=== PATIENT | female | born 1980 | race Caucasian/White ===

== ENCOUNTER 2017-12-02 09:53 | Emergency (ER) | payer SELFPAY ==
[2017-12-02 09:54] VITALS: BP 117/74; PULSE 102; RESP 18; TEMP 37.1; O2SAT 100; BMI 21.4
--- NOTE | 2017-12-02 10:14 | US_ITS ---
STUDY: FIRST TRIMESTER OBSTETRICAL ULTRASOUND REASON FOR EXAM: Female, 37 years old. Pelvic pain. LMP: Isaak 2017. TECHNIQUE: Transvaginal PRIOR ULTRASOUND: None. FINDINGS: There is visualization of a single gestational sac in a normal intrauterine position. The mean sac diameter (MSD) measures 2.58 cm, indicating an estimated gestational age (EGA) of 7 weeks, 5 days. The gestational sac shape is within normal limits. There is a visualized yolk sac. The yolk sac measures 0.52 cm. The placenta is non-visualized. There is visualization of a live embryo. The crown-rump length (CRL) measures 1.98 cm, indicating an estimated gestational age (EGA) of 8 weeks, 4 days. There is demonstrated cardiac activity with a heart rate of 157 bpm. The estimated gestation age (EGA) by LMP is 8 weeks, 4 days. The estimated date of delivery (CHERRI) by LMP is July 10, 2018. The estimated gestation age (EGA) by US is 8 weeks, 1 days. The estimated date of delivery (CHERRI) by US is July 13, 2018. The uterus measures 9.9 cm x 6.4 cm x 5.2 cm. There is no demonstrated uterine fibroid. The cervix is closed. The right ovary measures 4.5 cm x 1.4 cm x 2.3 cm. There is a 1.4 cm x 1.0 cm x 1.3 cm corpus luteum cyst in the right ovary. There is no visualized right adnexal mass or complex lesion. The left ovary measures 2.2 cm x 2.9 cm x 2.1 cm. There is no left ovarian cyst. There is no visualized left adnexal mass or complex lesion. There is no fluid in the cul de sac. US/Transvaginal w/Preg US IMPRESSION: Single live intrauterine gestation with a mean gestational age of 8 weeks and 1 day. Electronically Signed: Fam Tate MD at 12:29 EDT Tel [phone], Service support ,
[2017-12-02] MEDS: 0.9% Normal Saline 1,000 ML 1000 ML IV (10:20)
[2017-12-02] MEDS: Ondansetron 4 MG/2 ML Vial IV (10:22)
[2017-12-02 10:35] LABS: Absolute Lymphocyte Count 1.73 X10^3/ul (0.83-4.51); Absolute Neutrophil Count 3.7 X10^3/uL (2.0-7.7); Basophil# 0.01 X10^3/uL; Basophil% 0.2 % (0-1); Eosinophil# 0.05 X10^3/uL; Eosinophils% 0.8 % (0-5); Hematocrit 43.7 % (37-47); Hemoglobin 15.5 g/dl (12.0-15.0); Lymphocyte # 1.73 X10^3/ul (4.0); Lymphocyte % 28.9 % (19-41); Mean Corp Hgb Conc 35.5 g/gl (32-36); Mean Corpuscular Hgb 32.4 pg (27.0-32.0); Mean Corpuscular Volume 91.4 fL (81-99); Mean Platelet Vol. 10.5 fl (6.2-12.0); Monocyte# 0.53 X10^3/uL; Monocyte% 8.8 % (0-10); Neutrophil # 3.66 X10^3/uL (2.7-7.7); Neutrophil % 61.1 % (47-70); Platelet Count 306 K/mm3 (150-450); RBC Distribution Width SD 43.5 fl (35.1-43.9); Red Blood Count 4.78 M/mm3 (4.2-5.4)
[2017-12-02 10:52] LABS: POSITIVE COUNT NO; POSITIVE DIFFERENTIAL NO; POSITIVE MORPHOLOGY NO
--- NOTE | 2017-12-02 10:52 | ED.DCSUM_ITS ---
- ER Visit Summary Date of Service: 12/02/17 Chief Complaint: Abdominal pain and vomiting History of Present Illness: The patient is a [address] Limon and Dr. Ashley. She is a who took a test 2 days ago and found that she was . She reports her last menstrual period was in mid September. She denies any vaginal bleeding or discharge. Patient reports that she has been vomiting for approximately 1 week. States she is vomiting multiple times per day. No blood or emesis. She has abdominal pain that she describes as cramping. Senna 10 at worst and 7 out of 10 currently. Is worsened by urinating and relieved by nothing. She denies any diarrhea. She has had dysuria without frequency. Physical Examination: Vitals: Stable. Afebrile. General: Well-nourished and well-developed. Head: Normocephalic atraumatic. Neck: Supple, no lymphadenopathy. No JVD. Nontender. Cardiovascular: Regular rate and rhythm. No murmurs. Respiratory: No respiratory distress. Clear to auscultation bilaterally. Abdominal: Soft, mild right upper quadrant tenderness to palpation, nondistended , normal bowel sounds. No guarding, rebound, or peritoneal signs. Back: Nontender. Extremities: Nontender, no edema. Skin: Normal color, no rash. Neurologic: Alert and oriented ?3. Cranial nerves II through XII are intact. Normal strength and sensation. Psych: Normal affect. Test Results: CBC is marked for hemoglobin of 15.5. Chem-7 is normal. LFTs marked for total protein 9.1, globulin 5.2, ALT 57, and AST 42. Lipase is 66. UA does show an infection with 25-50 white blood cells, 3+ bacteria. Quantitative hCG is 155,562. She is B+. Ultrasound shows a single live intrauterine at 8 weeks and 1 day with heart tones of 157. Emergency Department Course and Treatment: Patient had an IV placed. She is given a liter bolus of normal saline. She was given Zofran for her nausea. She has not vomited while here. She was given a dose of Rocephin IV and her urine was sent for culture. Treatment Plan: Patient will be discharged with Zofran and Keflex. Instructed to follow-up with Dr. Ashley in 2 days previously scheduled. Disposition: To home in improved and stable condition. Impression: 1. First trimester . 2. Vomiting. 3. UTI. This note was generated with [employer] dictation software. It may contain incorrect words, spelling, and punctuation that were not noted in review of the chart prior to signing ED Disposition - Plan for ED Patient: Chief Complaint: Nausea/Vomiting Instructions: Severe Morning Sickness (Hyperemesis Gravidarum), ED UTI Cystitis Female Prescriptions: Ondansetron [Zofran Odt] 4 mg PO Q8H PRN PRN #10 tablet PRN Reason: Nausea Cephalexin [Keflex] 500 mg PO Q6 #40 capsule Referrals: Antoni Ashley MD [STAFF PHYSICIAN] - Keep Randa appointment
[2017-12-02 10:56] LABS: AST(SGOT) 42 U/L (15-37); Alanine Aminotransfer ALT/SGPT 57 U/L (13-56); Albumin, Serum 3.9 g/dL (3.2-5.0); Alkaline Phosphatase 91 U/L (45-117); Anion Gap 9 (5-15); BUN 8 mg/dL (7-18); Bilirubin, Direct 0.26 mg/dL (0.00-0.30); Calcium,Total 9.8 mg/dL (8.5-10.1); Chloride 107 mmol/L (98-107); Creatinine, Serum 0.73 mg/dL (0.55-1.02); EST Glomerular Filtration Rate 95 mL/min (>60); Est Glom Filt Rate - Afr Amer 115 mL/min (>60); Estimated Creatinine Clearance 108.49 ml/min; Globulin 5.2 g/dL (2.2-4.2); Glucose 97 mg/dL (74-106); Lipase 66 U/L (73-393); Potassium 3.7 mmol/L (3.5-5.1); Protein, Total 9.1 g/dL (6.4-8.2); Sodium Level 138 mmol/L (136-145)
[2017-12-02 10:59] LABS: Mucous, Urine 0 SEEN /hpf (<or=2+)
[2017-12-02 11:01] LABS: Color, Urine Yellow (Yellow); Glucose, Dipstick Normal (Normal); Leukocyte Esterase-Dipstick 500 /ul (Negative); Nitrite-Dipstick Positive (Negative); Occult Blood-Urine 10 /ul (Negative); Protein-Dipstick 15 mg/dl (Negative); Specific Gravity, Urine 1.015 (1.002-1.030); Urine Clarity Cloudy (Clear); Urine Urobilinogen 4 mg/dl (Normal)
[2017-12-02 11:02] LABS: Urine Bilirubin Dipstick 1 mg/dL (Negative)
[2017-12-02 11:03] LABS: Ketone-Dipstick 150 mg/dl (Negative)
[2017-12-02 11:06] LABS: Bacteria 3+ /hpf (None Seen); Red Blood Cells-Urine 0-5 SEEN /hpf (0-5); Squamous Epithelial Cells - UA 0-5 SEEN /hpf (5-10); White Blood Cells 25-50 SEEN /hpf (0-5)
[2017-12-02] MEDS: Ceftriaxone 1 GM/50 mL Premix x1 IV (11:39)
[2017-12-02 12:58] VITALS: BP 90/49; PULSE 100; RESP 17; O2SAT 100
== END 2017-12-02 13:00 | disposition home or self-care (01) ==
LOC: ED 10:31
PROVIDERS: Emergency Provider Emergency Medicine
DX: O23.41 Unspecified infection of urinary tract in pregnancy, first trimester (principal); B96.89 Other specified bacterial agents as the cause of diseases classified elsewhere; O21.9 Vomiting of pregnancy, unspecified; O99.331 Smoking (tobacco) complicating pregnancy, first trimester; Z3A.08 8 weeks gestation of pregnancy
CPT/HCPCS: 76817; 80048; 80076; 81001; 83690; 84702; 85025; 86900; 87086; 87088; 87186; 96365; 96375; 99283; J7030; A4216; J2405

== ENCOUNTER 2017-12-14 09:57 | Emergency (ER) | payer SELFPAY ==
[2017-12-14 09:58] VITALS: BP 134/77; PULSE 114; RESP 15; TEMP 36.8; O2SAT 100; BMI 19.1
[2017-12-14] MEDS: 0.9% Normal Saline 1,000 ML 1000 ML IV (10:20)
[2017-12-14 10:32] LABS: Absolute Lymphocyte Count 1.73 X10^3/ul (0.83-4.51); Absolute Neutrophil Count 3.6 X10^3/uL (2.0-7.7); Basophil# 0.01 X10^3/uL; Basophil% 0.2 % (0-1); Eosinophil# 0.07 X10^3/uL; Eosinophils% 1.2 % (0-5); Hematocrit 40.4 % (37-47); Hemoglobin 14.1 g/dl (12.0-15.0); Lymphocyte # 1.73 X10^3/ul (4.0); Mean Corp Hgb Conc 34.9 g/gl (32-36); Mean Corpuscular Volume 91.6 fL (81-99); Mean Platelet Vol. 10.9 fl (6.2-12.0); Monocyte% 6.9 % (0-10); Neutrophil # 3.55 X10^3/uL (2.7-7.7); Neutrophil % 61.7 % (47-70); POSITIVE COUNT NO; POSITIVE DIFFERENTIAL NO; POSITIVE MORPHOLOGY NO; Platelet Count 213 K/mm3 (150-450); RBC Distribution Width CV 12.9 % (11.6-14.6); RBC Distribution Width SD 43.4 fl (35.1-43.9); Red Blood Count 4.41 M/mm3 (4.2-5.4); White Blood Count 5.8 K/mm3 (4.4-11.0)
[2017-12-14 10:35] LABS: Bacteria 0 SEEN /hpf (None Seen); Color, Urine Yellow (Yellow); Glucose, Dipstick Normal (Normal); Ketone-Dipstick Negative (Negative); Leukocyte Esterase-Dipstick 25 /ul (Negative); Nitrite-Dipstick Negative (Negative); Occult Blood-Urine Negative /ul (Negative); Protein-Dipstick Negative (Negative); Red Blood Cells-Urine 0 SEEN /hpf (0-5); Urine Bilirubin Dipstick Negative (Negative); Urine Clarity Clear (Clear); Urine Urobilinogen 1 mg/dl (Normal); White Blood Cells 0 SEEN /hpf (0-5)
[2017-12-14] MEDS: Morphine 4 MG/ML Syringe IV (10:37)
[2017-12-14 10:41] VITALS: BP 106/81; PULSE 78; RESP 16; O2SAT 100
[2017-12-14 10:42] LABS: Mucous, Urine 1+ /hpf (<or=2+); Squamous Epithelial Cells - UA 0-5 SEEN /hpf (5-10)
[2017-12-14 10:50] LABS: Anion Gap 9 (5-15); BUN 5 mg/dL (7-18); BUN/Creat Ratio 8.5 RATIO (10-20); Calcium,Total 9.1 mg/dL (8.5-10.1); Chloride 108 mmol/L (98-107); Creatinine, Serum 0.59 mg/dL (0.55-1.02); EST Glomerular Filtration Rate 121 mL/min (>60); Est Glom Filt Rate - Afr Amer 146 mL/min (>60); Glucose 97 mg/dL (74-106); Potassium 3.2 mmol/L (3.5-5.1); Sodium Level 140 mmol/L (136-145)
--- NOTE | 2017-12-14 11:27 | US_ITS ---
STUDY: FIRST TRIMESTER OBSTETRICAL ULTRASOUND REASON FOR EXAM: Female, 37 years old. Cramping LMP: October 06, 2017 TECHNIQUE: Transvaginal PRIOR ULTRASOUND: December 02, 2017 FINDINGS: There is visualization of a single gestational sac in a normal intrauterine position. The mean sac diameter (MSD) measures 4.0 cm, indicating an estimated gestational age (EGA) of 10 weeks, 5 days. The gestational sac shape is within normal limits. There is a visualized yolk sac. The yolk sac measures 0.5 cm. The placenta is non-visualized. There is visualization of a live embryo. The crown-rump length (CRL) measures 3.8 cm, indicating an estimated gestational age (EGA) of 10 weeks, 6 days. There is demonstrated cardiac activity with a heart rate of 144 bpm. The estimated gestation age (EGA) by LMP is 9 weeks, 6 days. The estimated date of delivery (CHERRI) by LMP is July 13, 2018. The estimated gestation age (EGA) by US is 10 weeks, 2 days. The estimated date of delivery (CHERRI) by US is July 10, 2018. The uterus measures 11.5 x 7.2 x 6.0 cm. There is no demonstrated uterine fibroid. The cervix is closed. There is a nabothian cyst. The right ovary measures 2.6 x 2.0 x 1.4 cm. There is a 1.3 x 1.4 x 1.3 cm right ovarian mildly heterogeneous structure without vascularity suggesting a complex cyst. The left ovary measures 3.0 x 1.7 x 1.3 cm. There is no left ovarian cyst. There is no visualized left adnexal mass or complex lesion. There is no fluid in the cul de sac. US/Transvaginal w/Preg US IMPRESSION: There is a single live intrauterine gestation. The estimated gestation age (EGA) by LMP is 9 weeks, 6 days. The estimated date of delivery (CHERRI) by LMP is July 13, 2018. The estimated gestation age (EGA) by US is 10 weeks, 2 days. The estimated date of delivery (CHERRI) by US is July 10, 2018. There is suggestion of a right ovarian complex cyst. Electronically Signed: Magy Reynolds MD at 13:28 EDT , Service support ,
[2017-12-14 13:51] VITALS: BP 104/82; PULSE 73; RESP 16; O2SAT 100
--- NOTE | 2017-12-14 14:21 | ED.DCSUM_ITS ---
- ER Visit Summary Date of Service: 12/14/17 Chief Complaint: Pain History of Present Illness: The patient is a 37 F with back pain. She is about 10 weeks . Ab1. Follows with Dr. Ashley. No bleeding or discharge. No abdominal pain. No fevers. No urinary symptoms. Physical Examination: Vital signs unremarkable. Nontoxic and in no acute distress. Back is diffusely tender to palpation in the lumbar region. No abdominal tenderness. Skin appears normal. Test Results: CBC unremarkable. Potassium 3.2. Chloride 108. Urinalysis shows no bacteria or sign of infection. HCG quant is 96,000. Ultrasound showed a live intrauterine and a right ovarian complex cyst. This measured 1.4 cm in the largest diameter. Emergency Department Course and Treatment: Patient was treated with fluids and morphine here while awaiting results. I spoke with her OBs on-call partner regarding the cyst. This is unlikely to be causing the patient's pain. They will follow-up regarding her cyst and . I believe the pain is likely myofascial. She should continue Tylenol. Stay hydrated. Return for any new or worsening issues. Treatment Plan: Above Disposition: Discharged Impression: 1. Low back pain 2. Intrauterine This note was generated with [employer] dictation software. It may contain incorrect words, spelling, and punctuation that were not noted in review of the chart prior to signing ED Disposition - Plan for ED Patient: Chief Complaint: Referrals: Care Physician,No Primary [Primary Care Provider] -
--- NOTE | 2017-12-14 14:21 | ED.DEP ---
ED Disposition - Plan for ED Patient: Chief Complaint: Instructions: Back Pain During Referrals: Antoni Ashley MD [STAFF PHYSICIAN] -
[2017-12-14 14:35] VITALS: BP 117/71; PULSE 69; RESP 16; O2SAT 100
== END 2017-12-14 14:36 | disposition home or self-care (01) ==
PROVIDERS: Emergency Provider Emergency Medicine
DX: O99.89 Other specified diseases and conditions complicating pregnancy, childbirth and the puerperium (principal); M54.5 Low back pain; O34.81 Maternal care for other abnormalities of pelvic organs, first trimester; N83.291 Other ovarian cyst, right side; O99.331 Smoking (tobacco) complicating pregnancy, first trimester; Z3A.10 10 weeks gestation of pregnancy
CPT/HCPCS: 76817; 80048; 81001; 84702; 85025; 96361; 96374; 99283; J7030; A4216

== ENCOUNTER 2018-05-11 17:33 | Emergency (ER) | payer MEDICAID, SELFPAY ==
[2018-05-11 17:35] VITALS: BP 103/72; PULSE 103; PULSE 90; RESP 14; TEMP 36.7; O2SAT 93; O2SAT 98; BMI 26.9
[2018-05-11 18:50] LABS: Absolute Lymphocyte Count 2.74 X10^3/ul (0.83-4.51); Absolute Neutrophil Count 5.3 X10^3/uL (2.0-7.7); Basophil# 0.02 X10^3/uL; Basophil% 0.2 % (0-1); Eosinophil# 0.27 X10^3/uL; Hematocrit 33.7 % (37-47); Hemoglobin 11.1 g/dl (12.0-15.0); Lymphocyte # 2.74 X10^3/ul (4.0); Lymphocyte % 30.9 % (19-41); Mean Corp Hgb Conc 32.9 g/gl (32-36); Mean Corpuscular Hgb 30.7 pg (27.0-32.0); Mean Corpuscular Volume 93.1 fL (81-99); Mean Platelet Vol. 10.3 fl (6.2-12.0); Monocyte# 0.56 X10^3/uL; Monocyte% 6.3 % (0-10); Neutrophil # 5.27 X10^3/uL (2.7-7.7); Neutrophil % 59.4 % (47-70); Platelet Count 208 K/mm3 (150-450); RBC Distribution Width CV 13.9 % (11.6-14.6); Red Blood Count 3.62 M/mm3 (4.2-5.4); White Blood Count 8.9 K/mm3 (4.4-11.0)
[2018-05-11 18:54] LABS: POSITIVE COUNT NO; POSITIVE DIFFERENTIAL NO; POSITIVE MORPHOLOGY NO
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
[2018-05-11 18:57] LABS: BUN 5 mg/dL (7-18); Creatinine, Serum 0.72 mg/dL (0.55-1.02); EST Glomerular Filtration Rate 95 mL/min (>60); Estimated Creatinine Clearance 87.64 ml/min; Glucose 89 mg/dL (74-106)
[2018-05-11 18:58] LABS: Anion Gap 7 (5-15); BUN/Creat Ratio 6.9 RATIO (10-20); Calcium,Total 8.3 mg/dL (8.5-10.1); Chloride 108 mmol/L (98-107); Est Glom Filt Rate - Afr Amer 115 mL/min (>60); Potassium 3.5 mmol/L (3.5-5.1); Sodium Level 140 mmol/L (136-145)
[2018-05-11 19:43] VITALS: BP 108/70; PULSE 95; RESP 14; O2SAT 99
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
[2018-05-11 20:23] VITALS: BP 115/70; PULSE 96; RESP 14; O2SAT 98
== END 2018-05-11 20:24 | disposition short-term general hospital (02) ==
PROVIDERS: Emergency Provider Emergency Medicine
DX: O99.89 Other specified diseases and conditions complicating pregnancy, childbirth and the puerperium (principal); M79.671 Pain in right foot; M25.531 Pain in right wrist; M25.512 Pain in left shoulder; M54.2 Cervicalgia; R07.89 Other chest pain; V43.52XA Car driver injured in collision with other type car in traffic accident, initial encounter; Y93.89 Activity, other specified; Y92.9 Unspecified place or not applicable; O99.333 Smoking (tobacco) complicating pregnancy, third trimester; Z3A.31 31 weeks gestation of pregnancy
CPT/HCPCS: 70450; 71260; 72125; 73030; 73110; 73630; 76816; 80048; 80320; 85025; 99283; J7030; Q9967; A4216; G0480

== ENCOUNTER 2018-05-11 20:25 | Outpatient (CLI) | payer MEDICAID, SELFPAY ==
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
== END 2018-05-11 20:55 | disposition home or self-care (01) ==
LOC: WPOUT 21:14 → WP 21:15
PROVIDERS: Visit Provider Obstetrics & Gynecology
DX: O99.89 Other specified diseases and conditions complicating pregnancy, childbirth and the puerperium (principal); M79.671 Pain in right foot; M25.531 Pain in right wrist; M25.512 Pain in left shoulder; R07.89 Other chest pain; M54.2 Cervicalgia; V43.52XA Car driver injured in collision with other type car in traffic accident, initial encounter; Y93.89 Activity, other specified; Y92.9 Unspecified place or not applicable; O99.333 Smoking (tobacco) complicating pregnancy, third trimester; Z3A.31 31 weeks gestation of pregnancy; Z53.21 Procedure and treatment not carried out due to patient leaving prior to being seen by health care provider
CPT/HCPCS: 59050; 70450; 71260; 72125; 73030; 73110; 73630; 76816; 80048; 80320; 85025; 99218; 99283; J7030; Q9967; A4216; G0378; G0480

== ENCOUNTER 2018-10-20 12:33 | Emergency (ER) | payer MEDICAID, SELFPAY ==
[2018-10-20 12:34] VITALS: BP 128/70; PULSE 90; RESP 18; TEMP 36.6; O2SAT 99; BMI 20.2
--- NOTE | 2018-10-20 13:23 | RAD_ITS ---
STUDY: X-RAY - RIGHT WRIST REASON FOR EXAM: Female, 38 years old. Pain following a fall. TECHNIQUE: 3 view(s) of the wrist were obtained. COMPARISON: None. FINDINGS: Normal visualized distal radius and ulna. Normal radiocarpal articulation. Normal distal radioulnar articulation. Normal carpal bones. Normal carpal articulations. Normal carpometacarpal articulation of the thumb. Normal second through fifth carpometacarpal articulations. Normal visualized metacarpal bones. The soft tissue structures are unremarkable. RAD/Wrist min 3 Views IMPRESSION: Normal x-ray examination of the wrist. Electronically Signed: Fam Tate MD at 14:07 EST , Service support ,
[2018-10-20 13:50] VITALS: RESP 18
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
--- NOTE | 2018-10-20 14:24 | ED.DEP ---
ED Disposition - Plan for ED Patient: Disposition: Home or Assisted Living Chief Complaint: Upper Extremity Injury Instructions: ED Sprain Wrist Referrals: Deng Vieira MD [NON-STAFF] - 1 Week if not improving Additional Instructions: Ice and elevate right wrist. Motrin for pain and swelling. Wrist splint for comfort may take off is feeling better. Follow-up if wrist is not improving in 1-2 weeks.
[2018-10-20] MEDS: LORazepam 1 MG Tablet PO (14:36)
== END 2018-10-20 14:39 | disposition home or self-care (01) ==
PROVIDERS: Emergency Provider Emergency Medicine
DX: S63.501A Unspecified sprain of right wrist, initial encounter (principal); Y04.2XXA Assault by strike against or bumped into by another person, initial encounter; Y93.89 Activity, other specified; Y92.009 Unspecified place in unspecified non-institutional (private) residence as the place of occurrence of the external cause; F41.9 Anxiety disorder, unspecified; F43.10 Post-traumatic stress disorder, unspecified; Z72.0 Tobacco use
CPT/HCPCS: 73110; 99283

== ENCOUNTER 2018-11-03 05:37 | Emergency (ER) | payer MEDICAID, SELFPAY ==
[2018-11-03 05:38] VITALS: BP 123/97; PULSE 98; RESP 16; TEMP 36.6; O2SAT 100; BMI 20.1
--- NOTE | 2018-11-03 05:52 | ED.DCSUM_ITS ---
- ER Visit Summary Date of Service: 11/03/18 Chief Complaint: [] Stated for the last week she has had irritation inflammation in her right armpit. She has a history of IV drug abuse and has had some skin infections in the remote past. Over the last 3 months though she is been having flareups on her skin. She has not been on any recent antibiotics. In August she was just using topicals from a friend. History of Present Illness: The patient is a 38 F [] Physical Examination: [] Vital signs reviewed General: Well-nourished well-developed Head: Normocephalic atraumatic Eyes: Pupils equal round and reactive to light extraocular movements intact ENT: TMs clear no hemotympanum no trauma Neck: Nontender full range of motion Cardiovascular: Regular rate rhythm no murmurs normal S1-S2 Respiratory: No distress clear to auscultation bilaterally chest nontender Abdomen: Soft nontender nondistended normal bowel sounds no masses Back: Nontender no CVA tenderness Extremities: Nontender active range of motion ?4 extremities no trauma Skin: Right axilla has multiple hair follicles that are inflamed. They are hard. There is no fluctuant abscess. There is no cellulitis. This resembles hidradenitis separative a Neuro alert oriented cranial nerves II through XII intact normal strength sensation reflexes Test Results: [] Emergency Department Course and Treatment: [] At this time the patient has nothing to incise and drain. These areas are hard and inflamed. She will be treated with oral Bactrim, clindamycin lotion, mupirocin ointment for her nose as she is likely a carrier of MRSA and chlorhexidine. She will follow-up as an outpatient and return if she worsens. She is encouraged to use warm soaks. She did try to use tweezers to break 1 of these open and it just blood without pus. Encouraged not to do this in the future but to use her fingers to break open any pimples or pustules Treatment Plan: [] Disposition: [] Impression: [] Right axillary hidradenitis This note was generated with [employer] dictation software. It may contain incorrect words, spelling, and punctuation that were not noted in review of the chart prior to signing ED Disposition - Plan for ED Patient: Referrals: Care Physician,No Primary [Primary Care Provider] -
--- NOTE | 2018-11-03 05:52 | ED.DEP ---
ED Disposition - Plan for ED Patient: Disposition: Home or Assisted Living Instructions: ED Axillary Gland Infec Abx Prescriptions: Chlorhexidine Gluconate [Hibiclens] 120 ml TP X1 1 Days #1 liquid Clindamycin Phosphate 60 ml TP BID 14 Days #1 lotion Smz/Tmp Ds [Bactrim Ds] 1 tab PO BID #20 tab Mupirocin [Bactroban] 1 applic TOPICAL TID #1 tube Referrals: Sonu Lynn MD [STAFF PHYSICIAN] -
[2018-11-03] MEDS: Smz/Tmp Ds Tablet 1 TABLET PO (06:00)
== END 2018-11-03 06:04 | disposition home or self-care (01) ==
PROVIDERS: Emergency Provider Emergency Medicine
DX: L73.2 Hidradenitis suppurativa (principal); Z72.0 Tobacco use
CPT/HCPCS: 99283

== ENCOUNTER 2018-11-07 15:58 | Emergency (ER) | payer MEDICAID, SELFPAY ==
[2018-11-07 15:59] VITALS: BP 113/67; PULSE 118; RESP 16; TEMP 37.2; O2SAT 95; BMI 20.7
--- NOTE | 2018-11-07 16:21 | ED.VISSUMM ---
- ER Visit Summary Date of Service: 11/07/18 Chief Complaint: [Cellulitis/abscess right armpit] History of Present Illness: The patient is a 38 F [presents to the emergency department with complaint of wanting to have a wound check to evaluate her right armpit. Patient apparently has had some abscesses to the right axilla for about 2 weeks. Patient was seen 5 days ago in the emergency department and given IV antibiotics and start on clindamycin as well as Bactrim and some sort of a wash. Patient was diagnosed with MRSA. Patient states that the armpit is actually improving and that it is no longer draining there is not been any increasing in size of the lesions. Patient states the erythema has improved significantly. Patient just wanted to be evaluated to make sure things are going in the right direction. Patient's not had any fevers. Patient also admits to heroin use and she is been using for the last week.] Physical Examination: [HEENT-PERRLA, EOMI. Cranial nerves II through XII grossly intact. TMs clear. Mucous membranes moist. No adenopathy. Cardiovascular-regular and slightly tachycardic. No murmurs auscultated. Lungs-clear to auscultation, chest wall stable without crepitus or subcu emphysema Skin exam-patient has multiple excoriations noted involving the base of the neck and onto the scalp without evidence of abscess. Patient has multiple excoriations on both upper extremities without any cellulitis or abscesses noted. Abdomen-normoactive bowel sounds, soft, nontender, no rebound or rigidity, no peritoneal signs. Extremities-intact ?4, normal range of motion, normal pulses, atraumatic. Right axilla-patient has multiple soft tissue abscesses that have coalesced and are slightly firm to palpation there is no fluctuance. There is minimal erythema. No significant drainage.] Test Results: [None indicated] Emergency Department Course and Treatment: [I discussed with patient that I did not feel attempting to incise these areas in the axilla would yield good results and felt that she was better served following up with a surgeon which she was told initially however she states she lost all her paperwork. Patient will be given referral to Dr. Tony Wolf for follow-up.] Treatment Plan: [Patient advised to continue with her antibiotics.] Disposition: [Discharged home in stable condition] Impression: [Hidradenitis of vertebral right axilla] This note was generated with [employer] dictation software. It may contain incorrect words, spelling, and punctuation that were not noted in review of the chart prior to signing ED Disposition - Plan for ED Patient: Referrals: Care Physician,No Primary [Primary Care Provider] -
--- NOTE | 2018-11-07 16:25 | ED.DEP ---
ED Disposition - Plan for ED Patient: Instructions: ED Staph Infec Abx Tx Only Referrals: Care Physician,No Primary [Primary Care Provider] - Tony Wolf MD [STAFF PHYSICIAN] - 3-5 Days
== END 2018-11-07 17:00 | disposition home or self-care (01) ==
LOC: ED 16:47
PROVIDERS: Emergency Provider Emergency Medicine
DX: L73.2 Hidradenitis suppurativa (principal); Z72.0 Tobacco use
CPT/HCPCS: 99282

== ENCOUNTER 2021-06-12 02:46 | Emergency (ER) | payer MEDICAID, SELFPAY ==
[2021-06-12 02:47] VITALS: BP 119/75; PULSE 58; RESP 16; TEMP 36; O2SAT 99; BMI 25.1
--- NOTE | 2021-06-12 03:15 | EDS_ITS ---
HPI History of Present Illness Chief Complaint: Nausea/Vomiting/Diarrhea Informant: patient Narrative Narrative: Patient complains of nausea vomiting. It started Friday morning. She states Friday she did not have as much of an appetite but had no nausea or vomiting. No watery diarrhea. Possibly mildly soft. No urinary symptoms such as burning frequency urgency. She might have a slight decrease of urination. She came in because she can even keep liquids or Gatorade down. She states her stomach spasms when she is vomiting but other than that she really does not have abdominal pain. Only abdominal surgery are tubal ligation. No known sick contacts. No change in antibiotics. No fevers or chills. PFSH PFS Medical History Anxiety Depression Home Medications ondansetron 4 mg PO Q8H PRN #10 tab 06/12/21 [Rx Last Taken Unknown] promethazine 25 mg PO Q6H PRN #10 tab 06/12/21 [Rx Last Taken Unknown] quetiapine [Seroquel] 300 mg PO QHS 06/12/21 [History Last Taken Unknown] venlafaxine [Effexor XR] 150 mg PO DAILY 06/12/21 [History Last Taken Unknown] Allergy/AdvReac Type Severity Reaction Status Date / Time latex Allergy Rash Verified 06/12/21 02:47 Social History Smoking Status: Current every day smoker tobacco type: cigarettes ROS ROS ED Constitutional Constitutional ED: Denies chills or fever(s) Eyes Eyes: Denies change in vision ENT ENT ED: Denies rhinorrhea or sore throat Cardiovascular Cardiovascular: Denies chest pain or palpitations Respiratory/Chest Respiratory/Chest: Denies cough, dyspnea or sputum Gastrointestinal Gastrointestinal: Reports diarrhea, nausea and vomiting; Denies abdominal pain, constipation or melena Genitourinary Genitourinary ED: Denies dysuria, hematuria or urinary frequency Musculoskeletal Musculoskeletal: Denies arthralgias, back pain or myalgias Integumentary Denies rash Neurologic Neurologic: Denies headache(s) Psychiatric Psychiatric: Reports anxiety Endocrine Endocrinology: Denies polydipsia or polyuria Allergic/Immunologic Allergic/Immunologic ED: Denies urticaria EXAM Physical Exam Const Vital Signs: 06/12/21 02:47 06/12/21 06:40 Temperature 96.8 F L Temperature Source Temporal Pulse Rate 58 L 58 L Respiratory Rate 16 16 Blood Pressure 119/75 103/62 Blood Pressure Mean 89 75 Pulse Ox 99 98 Oxygen Delivery Method Room Air Room Air Positive well nourished and well developed General Appearance ED: well developed and NAD HEENT Reports dry mucous membranes Mouth ED: Yes dry mucous membranes Mouth: dry mucous membranes Eyes General Eye ED: Negative for pale conjunctiva or scleral icterus Neck no lymphadenopathy Chest Wall inspection of chest normal Resp normal respiratory effort and clear to auscultation bilaterally Auscultation: Negative for rales, rhonchi or wheezes Cardio regular rate and regular rhythm GI normal to inspection, nondistended, normoactive bowel sounds, non-tender and non-distended Palpation: soft Back/Spine no CVA tenderness Extremity normal to inspection General Extremety ED: Negative for tenderness Neuro Sensorium / Orientation: alert Psych mental status grossly normal Skin no rashes or lesions noted MDM MDM MDM Narrative Medical decision making narrative: Patient's labs show normal white count hemoglobin. Electrolytes are overall unremarkable other than a minimal elevation of glucose at 122 and minimal hypokalemia at 3.4. This should self correct. Urine shows ketones but no sign of infection. Patient got improvement with Zofran. We tried some Phenergan to help. She states this normally helps a little bit more. She is feeling better. Her abdomen is still benign. I think we can get her home. I will write for both Zofran and Phenergan so she has options at home. We discussed returning if she develops fevers, recurrent vomiting, develops abdominal pain or other concerns. Lab Data Attestation: I reviewed the patient's lab results. Labs: Laboratory Results - last 24 hr 06/12/21 06/12/21 06/12/21 03:30 03:30 06:35 WBC 8.3 RBC 4.29 Hgb 14.4 Hct 41.5 MCV 96.7 MCH 33.6 H MCHC 34.7 RDW Std Deviation 46.2 H RDW Coeff of Brianna 13.0 Plt Count 278 MPV 10.4 Immature Gran % (Auto) 0.200 Neut % (Auto) 69.1 Lymph % (Auto) 24.1 [place] % (Auto) 6.5 Eos % (Auto) 0.0 Baso % (Auto) 0.1 Absolute Neuts (auto) 5.8 Absolute Lymphs (auto) 2.01 Nucleated RBC % 0 Sodium 138 Potassium 3.4 L Chloride 105 Carbon Dioxide 26.0 Anion Gap 7 BUN 13 Creatinine 0.82 Estim Creat Clear Calc 93.40 Est GFR (MDRD) Af Amer 99 Est GFR (MDRD) Non-Af 82 BUN/Creatinine Ratio 16.0 Glucose 122 H Calcium 8.9 Urine Color Yellow Urine Clarity Clear Urine pH 7.0 Ur Specific [place] 1.010 Urine Protein 30 H Urine Glucose (UA) Normal Urine Ketones 150 A* Urine Occult Blood Negative Urine Nitrite Negative Urine Bilirubin 1 H Urine Urobilinogen 8 H Ur Leukocyte Esterase 25 H Urine RBC 0 SEEN Urine WBC 0-5 SEEN Ur Squamous Epith Cells 5-10 SEEN Urine Bacteria 3+ Urine Mucus 3+ Discharge Plan Triage Chief Complaint: Nausea/Vomiting/Diarrhea ED Provider: Jaylen Lobo Dx/Rx/DC Orders Clinical Impression: Nausea & vomiting Instructions: ED Vomiting (Adult) Prescriptions: New ondansetron 4 mg tablet,disintegrating 4 mg PO Q8H PRN (Reason: nausea and vomiting) Qty: 10 RF: 0 promethazine 25 mg tablet 25 mg PO Q6H PRN (Reason: nausea and vomiting) Qty: 10 RF: 0 No Action quetiapine [Seroquel] 300 mg Tablet 300 mg PO QHS RF: 0 venlafaxine [Effexor XR] 150 mg Capsule,Extended Release 24hr 150 mg PO DAILY RF: 0 Primary Care Provider: Care Physician,No Primary Referrals: Care Physician,No Primary [Primary Care Provider] - Disposition Disposition: Home, Self Care
[2021-06-12] MEDS: 0.9% Normal Saline 1,000 ML 1000 ML IV (03:38)
[2021-06-12] MEDS: Ondansetron 4 MG/2 ML Vial IV (03:38)
[2021-06-12 03:39] LABS: Absolute Lymphocyte Count 2.01 X10^3/uL (0.83-4.51); Absolute Neutrophil Count 5.8 X10^3/uL (2.0-7.7); Basophil# 0.01 X10^3/uL; Basophil% 0.1 % (0-1); Hematocrit 41.5 % (37-47); Hemoglobin 14.4 g/dL (12.0-15.0); Lymphocyte # 2.01 X10^3/ul (0.83-4.51); Lymphocyte % 24.1 % (19-41); Mean Corp Hgb Conc 34.7 g/dL (32-36); Mean Corpuscular Hgb 33.6 pg (27.0-32.0); Mean Corpuscular Volume 96.7 fL (81-99); Mean Platelet Vol. 10.4 fl (6.2-12.0); Monocyte# 0.54 X10^3/uL; Monocyte% 6.5 % (0-10); NRBC Flagged by Analyzer 0 % (0-5); Neutrophil # 5.75 X10^3/uL (2.7-7.7); Neutrophil % 69.1 % (47-70); Platelet Count 278 K/mm3 (150-450); RBC Distribution Width SD 46.2 fl (35.1-43.9); Red Blood Count 4.29 M/mm3 (4.2-5.4); White Blood Count 8.3 K/mm3 (4.4-11.0)
[2021-06-12 03:52] LABS: Anion Gap 7 (5-15); BUN 13 mg/dL (7-18); Calcium,Total 8.9 mg/dL (8.5-10.1); Chloride 105 mmol/L (98-107); Creatinine, Serum 0.82 mg/dL (0.55-1.02); EST Glomerular Filtration Rate 82 mL/min (>60); Est Glom Filt Rate - Afr Amer 99 mL/min (>60); Glucose 122 mg/dL (74-106); Potassium 3.4 mmol/L (3.5-5.1); Sodium Level 138 mmol/L (136-145)
[2021-06-12 06:40] VITALS: BP 103/62; PULSE 58; RESP 16; O2SAT 98
[2021-06-12 06:48] LABS: Red Blood Cells-Urine 0 SEEN /hpf (0-5)
[2021-06-12] MEDS: proMETHazine 25 MG/ML Syringe 12.5 MG IM (06:48)
[2021-06-12 07:05] LABS: Color, Urine Yellow (Yellow); Glucose, Dipstick Normal (Normal); Leukocyte Esterase-Dipstick 25 /ul (Negative); Nitrite-Dipstick Negative (Negative); Occult Blood-Urine Negative /ul (Negative); Protein-Dipstick 30 mg/dl (Negative); Urine Clarity Clear (Clear); Urine Urobilinogen 8 mg/dl (Normal)
[2021-06-12 07:12] LABS: Urine Bilirubin Dipstick 1 mg/dL (Negative)
[2021-06-12 07:13] LABS: Ketone-Dipstick 150 mg/dl (Negative); Mucous, Urine 3+ /hpf (<or=2+)
[2021-06-12 07:14] LABS: Bacteria 3+ /hpf (None Seen); Squamous Epithelial Cells - UA 5-10 SEEN /hpf (5-10); White Blood Cells 0-5 SEEN /hpf (0-5)
[2021-06-12 07:43] VITALS: BP 138/77; PULSE 62; RESP 15; O2SAT 98
== END 2021-06-12 07:43 | disposition home or self-care (01) ==
PROVIDERS: Emergency Provider Emergency Medicine
DX: R11.2 Nausea with vomiting, unspecified (principal); F17.210 Nicotine dependence, cigarettes, uncomplicated; F32.9 Major depressive disorder, single episode, unspecified; Z79.899 Other long term (current) drug therapy
CPT/HCPCS: 80048; 81001; 85025; 96361; 96372; 96374; 99284; J7030; A4216; J2405